=== PATIENT | male | born 2000 | race Caucasian/White ===

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

== ENCOUNTER 2023-02-07 17:17 | Emergency (ER) | payer OTHER ==
[2023-02-07] MEDS ORDERED: HYDROCODONE/APAP 5/325 MG TAB ONE (18:19)
[2023-02-07 18:21] LABS: Absolute Lymphocytes (CBC) 1.9 K/uL (0.7-4.9); Hematocrit 46.5 % (39.6-49.0); Lymphocytes % 29.7 % (15.3-44.8); MCV 90.8 fL (80-100); MPV 9.3 fL (7.6-11.3); RBC Red Blood Cell Count 5.13 M/uL (4.33-5.43)
[2023-02-07] MEDS ORDERED: TDAP (DIPHTH,PERTUSS(ACELL),TET VAC) 0.5 ML VIAL IMVAC ONE (18:30)
[2023-02-07 18:34] LABS: Albumin 4.2 g/dL (3.4-5.0); Bilirubin Total 0.6 mg/dL (0.2-1.0); Potassium 3.7 mEq/L (3.5-5.1); Protein, Total 7.9 g/dL (6.4-8.2)
--- NOTE | 2023-02-07 18:50 | RAD REPORT ---
EXAM DESCRIPTION: CT - Hand Left Wo Con - 02/07/2023 6:39 pm CLINICAL HISTORY: hand swelling Hand pain and swelling COMPARISON: No comparisons FINDINGS: Moderate soft tissue swelling is seen involving the fourth finger. No underlying bone abnormality. No soft tissue gas seen. No significant fluid collection. No evidence of fracture. No radiopaque foreign body. IMPRESSION: Soft tissue swelling involving the fourth finger is present. This may be related to infe ction. No soft tissue gas. All CT scans are performed using dose optimization technique as appropriate and may include automated exposure control or mA/KV adjustment according to patient size.
[2023-02-07] MEDS ORDERED: AMPICILLIN/SULBACT 1.5GM VIAL ONE (19:57)
[2023-02-07] MEDS ORDERED: NA CHLORIDE 0.9% 100 ML ONE (19:58)
--- NOTE | 2023-02-07 20:35 | ER ---
Nurse's Notes [facility] Name: Chiki Marquez Age: 22 yrs Sex: Male : 2000 Arrival Date: 02/07/2023 Time: 17:17 Bed 8 Private MD: Diagnosis: Cellulitis of left finger-2nd and 3rd Presentation: 02/07 17:37 Chief complaint: Patient states: got poked by a crab trap on left index finger, about a iw week ago, and now the swelling has spread down the finger and into palm. Coronavirus screen: At this time, the client does not indicate any symptoms associated with coronavirus-19. 17:37 Method Of Arrival: Ambulatory iw 17:37 Ebola Screen: No symptoms or risks identified at this time. Initial Sepsis Screen: Does iw the patient meet any 2 criteria? No. Patient's initial sepsis screen is negative. Does the patient have a suspected source of infection? No. Patient's initial sepsis screen is negative. Risk Assessment: Do you want to hurt yourself or someone else? Patient reports no desire to harm self or others. Onset of symptoms was January 31, 2023. 17:37 Acuity: JEFFERSON 3 iw Historical: - Allergies: 17:39 No Known Allergies; iw - Home Meds: 17:39 None [Active]; iw - PMHx: 17:39 None; iw - PSHx: 17:39 pyloric stenosis; iw - Immunization history:: Last tetanus immunization: unknown. - Social history:: Smoking status: Patient reports the use of cigarette tobacco products. Screenin:27 [facility] ED Fall Risk Assessment (Adult) Score/Fall Risk Level 0 - 2 = Low Risk ll1 Oriented to surroundings, Maintained a safe environment, Educated pt \T\ family on fall prevention, incl call for assistance when getting out of bed, Hourly rounding (assess needs \T\ fall precautionary measures) done. Abuse screen: Denies threats or abuse. Nutritional screening: No deficits noted. Tuberculosis screening: No symptoms or risk factors identified. Assessment: 17:55 General: Appears uncomfortable, Behavior is calm, cooperative, appropriate for age. ll1 Pain: Complains of pain in left hand Pain currently is 2 out of 10 on a pain scale. Quality of pain is described as aching. Derm: L hand red, swollen Reports. Musculoskeletal: Circulation, motion, and sensation intact. Capillary refill < 3 seconds, Swelling present in left hand. 18:27 Reassessment: No changes from previously documented assessment. Patient and/or family ll1 updated on plan of care and expected duration. Pain level reassessed. Patient is alert, oriented x 3, equal unlabored respirations, skin warm/dry/pink. 18:52 Reassessment: No changes from previously documented assessment. Patient and/or family ll1 updated on plan of care and expected duration. Pain level reassessed. Patient is alert, oriented x 3, equal unlabored respirations, skin warm/dry/pink. 19:00 Reassessment: No changes from previously documented assessment. Patient and/or family vc1 updated on plan of care and expected duration. Pain level reassessed. Patient is alert, oriented x 3, equal unlabored respirations, skin warm/dry/pink. 19:59 Reassessment: No changes from previously documented assessment. Patient and/or family vc1 updated on plan of care and expected duration. Pain level reassessed. Patient is alert, oriented x 3, equal unlabored respirations, skin warm/dry/pink. 20:52 Reassessment: pt left with adult. instructions given. ambulatory. rv Vital Signs: 17:37 BP 115 / 81; Pulse 83; Resp 18; Temp 98.2; Pulse Ox 100% on R/A; Weight 90.72 kg; iw Height 6 ft. 0 in. ; Pain 0/10; 19:58 BP 99 / 86; Pulse 63; Resp 18; Pulse Ox 97% on R/A; vc1 20:51 BP 112 / 70; Pulse 70; Resp 17; Temp 98; Pulse Ox 99% on R/A; rv 17:37 Body Mass Index 27.13 (90.72 kg, 182.88 cm) iw 17:37 Pain Scale: Adult iw [place] Coma Score: 20:52 Eye Response: spontaneous(4). Motor Response: obeys commands(6). Verbal Response: rv oriented(5). Total: 15. ED Course: 17:19 Patient arrived in ED. rg4 17:34 [facility]C [facility]. snw 17:34 Cristofer Dutton MD is Attending Physician. snw 17:39 Triage completed. iw 17:39 Arm band placed on. iw 18:07 Mynor Young, RN is Primary Nurse. ll1 18:08 Inserted saline lock: 20 gauge in right antecubital area, using aseptic technique. ll1 Blood collected. 18:27 Patient has correct armband on for positive identification. Bed in low position. Call ll1 light in reach. Side rails up X 1. Client placed on continuous cardiac and pulse oximetry monitoring. NIBP monitoring applied. 18:41 Hand Left Wo Con In Process Unspecified. EDMS 18:52 Blood Culture Adult (2) Sent. ll1 19:03 Blood Culture Adult (2) Sent. ll1 Administered Medications: 18:21 Drug: HYDROcodone-acetaminophen PO 5 mg-325 mg 1 tabs {Note: RASS 0, pain 2/10.} Route: ll1 PO; 18:25 Drug: Boostrix Tdap IM 0.5 ml {Note: A143A Exp. 2023.} Route: IM; Site: right ll1 deltoid; 19:09 Not Given (not available): cefOTAXime IVPB 2 grams IVPB once over 30 mins; (mix in 100 snw mL NS) 19:58 Drug: Ampicillin-Sulbactam Sodium IVPB 1.5 grams Route: IVPB; Infused Over: 30 mins; vc1 Site: right antecubital; Medication: 18:26 Vaccine Information Statement (VIS) provided today. Questions and/or concerns [facility] addressed. VIS edition date: April 25, 2021. Outcome: 20:35 Discharge ordered by . snw 20:53 Patient left the ED. sb4 Signatures: Dispatcher [employer] EDIL Una Room, KAT-C [employer]-Constanza Coronado RN RN iw Garcia, Rubi rg4 Johan Beltran RN RN rv Lewis, Lynsay, RN RN ll1 Zulma Travis RN RN 1 Talita Lawson, AUR[place] PAKelly sb4 Corrections: (The following items were deleted from the chart) 17:39 17:37 BP 115 / 81; Pulse 83bpm; Resp 2bpm; Pulse Ox 100% RA; Temp 98.2F; 90.72 kg; iw Height 6 ft. 0 in.; BMI: 27.1; Pain 0/10, Adult; iw
--- NOTE | 2023-02-07 20:35 | EDPHYS ---
Physician Documentation [facility] Name: Chiki Marquez Age: 22 yrs Sex: Male : 2000 Arrival Date: 02/07/2023 Time: 17:17 Bed 8 Private MD: ED Physician Cristofer Dutton HPI: 02/07 18:22 This 22 yrs old Male presents to ER via Ambulatory with complaints of Hand Swelling. snw 18:22 The patient or guardian reports pain, swelling. The complaints affect the dorsal aspect snw of proximal phalanx of left index finger, dorsal aspect of proximal phalanx of left middle finger, dorsum of left hand, palmar aspect of proximal phalanx of left middle finger, palmar aspect of proximal phalanx of left index finger and Left first web space. Context: resulted from works on crabbing boat, multiple punctures a few days ago and now area is more swollen and tender with change in coloration. Historical: - Allergies: 17:39 No Known Allergies; iw - Home Meds: 17:39 None [Active]; iw - PMHx: 17:39 None; iw - PSHx: 17:39 pyloric stenosis; iw - Immunization history:: Last tetanus immunization: unknown. - Social history:: Smoking status: Patient reports the use of cigarette tobacco products. ROS: 19:00 Constitutional: Negative for fever, chills, and weight loss, Eyes: Negative for injury, snw pain, redness, and discharge, ENT: Negative for injury, pain, and discharge, Neck: Negative for injury, pain, and swelling, Cardiovascular: Negative for chest pain, palpitations, and edema, Respiratory: Negative for shortness of breath, cough, wheezing, and pleuritic chest pain, Abdomen/GI: Negative for abdominal pain, nausea, vomiting, diarrhea, and constipation, Back: Negative for injury and pain, : Negative for injury, bleeding, discharge, and swelling, MS/Extremity: Negative for injury and deformity, Neuro: Negative for headache, weakness, numbness, tingling, and seizure, Psych: Negative for depression, anxiety, suicide ideation, homicidal ideation, and hallucinations. 19:00 Skin: Positive for rash, swelling, of the left 4th and 5th fingers/medial hand. Exam: 18:21 Constitutional: This is a well developed, well nourished patient who is awake, alert, snw and in no acute distress. Head/Face: Normocephalic, atraumatic. Eyes: Pupils equal round and reactive to light, extra-ocular motions intact. Lids and lashes normal. Conjunctiva and sclera are non-icteric and not injected. Cornea within normal limits. Periorbital areas with no swelling, redness, or edema. ENT: Nares patent. No nasal discharge, no septal abnormalities noted. Tympanic membranes are normal and external auditory canals are clear. Oropharynx with no redness, swelling, or masses, exudates, or evidence of obstruction, uvula midline. Mucous membranes moist. Neck: Trachea midline, no thyromegaly or masses palpated, and no cervical lymphadenopathy. Supple, full range of motion without nuchal rigidity, or vertebral point tenderness. No Meningismus. Chest/axilla: Normal chest wall appearance and motion. Nontender with no deformity. No lesions are appreciated. Cardiovascular: Regular rate and rhythm with a normal S1 and S2. No gallops, murmurs, or rubs. Normal PMI, no JVD. No pulse deficits. Respiratory: Lungs have equal breath sounds bilaterally, clear to auscultation and percussion. No rales, rhonchi or wheezes noted. No increased work of breathing, no retractions or nasal flaring. Abdomen/GI: Soft, non-tender, with normal bowel sounds. No distension or tympany. No guarding or rebound. No evidence of tenderness throughout. Back: No spinal tenderness. No costovertebral tenderness. Full range of motion. Neuro: Awake and alert, GCS 15, oriented to person, place, time, and situation. Cranial nerves II-XII grossly intact. Motor strength 5/5 in all extremities. Sensory grossly intact. Cerebellar exam normal. Normal gait. Psych: Awake, alert, with orientation to person, place and time. Behavior, mood, and affect are within normal limits. 18:21 Skin: Appearance: normal except for affected area, injury, puncture(s), that are deep, of the palmar aspect of proximal phalanx of left index finger and palmar aspect of proximal phalanx of left middle finger. Vital Signs: 17:37 BP 115 / 81; Pulse 83; Resp 18; Temp 98.2; Pulse Ox 100% on R/A; Weight 90.72 kg; iw Height 6 ft. 0 in. ; Pain 0/10; 19:58 BP 99 / 86; Pulse 63; Resp 18; Pulse Ox 97% on R/A; vc1 20:51 BP 112 / 70; Pulse 70; Resp 17; Temp 98; Pulse Ox 99% on R/A; rv 17:37 Body Mass Index 27.13 (90.72 kg, 182.88 cm) iw 17:37 Pain Scale: Adult iw [place] Coma Score: 20:52 Eye Response: spontaneous(4). Motor Response: obeys commands(6). Verbal Response: rv oriented(5). Total: 15. MDM: 17:45 Patient medically screened. snw 19:01 Differential diagnosis: closed fracture, tendonitis, Nec fasc, foreign body. Data snw reviewed: vital signs, nurses notes, lab test result(s), radiologic studies. 19:18 Historians other than the Patient: Parent: Father. Counseling: I had a detailed snw discussion with the patient and/or guardian regarding: the historical points, exam findings, and any diagnostic results supporting the discharge/admit diagnosis, lab results, radiology results, the need for outpatient follow up, for definitive care, to return to the emergency department if symptoms worsen or persist or if there are any questions or concerns that arise at home. Response to treatment: the patient's symptoms have mildly improved after treatment. 19:25 ED course: Encouraged to return to ED Wednesday for evaluation of hand prior to returning snw to work. Pt and Father state understanding. 02/07 17:45 Order name: CBC with Diff; Complete Time: 18:33 snw 02/07 17:45 Order name: CMP; Complete Time: 18:34 snw 02/07 17:45 Order name: Blood Culture Adult (2) snw 02/07 17:54 Order name: Hand Left Wo Con; Complete Time: 18:58 EDMS 02/07 18:08 Order name: IV Start; Complete Time: 18:08 ll1 Administered Medications: 18:21 Drug: HYDROcodone-acetaminophen PO 5 mg-325 mg 1 tabs {Note: RASS 0, pain 2/10.} Route: ll1 PO; 18:25 Drug: Boostrix Tdap IM 0.5 ml {Note: A143A Exp. 2023.} Route: IM; Site: right ll1 deltoid; 19:09 Not Given (not available): cefOTAXime IVPB 2 grams IVPB once over 30 mins; (mix in 100 snw mL NS) 19:58 Drug: Ampicillin-Sulbactam Sodium IVPB 1.5 grams Route: IVPB; Infused Over: 30 mins; vc1 Site: right antecubital; Disposition Summary: 02/07/23 20:35 Discharge Ordered Location: Home snw Condition: Stable snw Diagnosis - Cellulitis of left finger - 2nd and 3rd snw Followup: snw - With: Emergency Department - When: 2 - 3 days - Reason: Recheck today's complaints, Continuance of care Discharge Instructions: - Discharge Summary Sheet snw - Cellulitis, Adult snw Forms: - Medication Reconciliation Form snw - Thank You Letter snw - Antibiotic Education snw - Prescription Opioid Use snw Prescriptions: - Doxycycline Hyclate 100 mg Oral Tablet - take 1 tablet by ORAL route every 12 hours; 20 tablet; Refills: 0, Product snw Selection Permitted - Tramadol 50 mg Oral Tablet - take 1 tablet by ORAL route every 8 hours as needed; 12 tablet; Refills: 0, snw Product Selection Permitted Signatures: Dispatcher [employer] EDMS Una Romo, KAT-C LAW REPORTER-Csnw Constanza Miranda RN RN iw Lewis, Lynsay, RN RN ll1 Zulma Travis RN RN vc1 Corrections: (The following items were deleted from the chart) 19:00 18:21 Skin: Appearance: normal except for affected area, injury, puncture(s), that are snw deep, of the palmar aspect of proximal phalanx of left middle finger and palmar aspect of proximal phalanx of left index finger, concern for fb from crabbing, area is violaceous and edematous, full ROM, snw 19:27 18:21 Skin: Appearance: normal except for affected area, injury, puncture(s), that are snw deep, of the palmar aspect of proximal phalanx of left fourth finger and palmar aspect of proximal phalanx of left pinkie finger, concern for fb from crabbing, area is violaceous and edematous, full ROM, snw
[2023-02-07 21:19] VITALS: BP 112/70; TEMP 98; O2SAT 99
== END 2023-02-07 20:53 | disposition home or self-care (01) ==
LOC: ER 17:17
DX: L03.012 Cellulitis of left finger (principal); Z72.0 Tobacco use
CPT/HCPCS: 87040 ×2; 85025; 36415; 80053; 73200; J0295